=== PATIENT | female | born 1990 | race Caucasian/White ===

== ENCOUNTER 2019-10-02 16:05 | Inpatient (IN) | payer MEDICAID, OTHER ==
[~2019-10-02] VITALS: Ht 157.5 cm; Wt 72.6 kg
[~2019-10-02 16:05] MED LIST: PREN-65 PO
[2019-10-02 17:19] VITALS: BP 103/58
[2019-10-02] MEDS ORDERED: PREN-217 PO (17:19)
[2019-10-02] MEDS ORDERED: FERR-89 PO (17:19)
[2019-10-02] MEDS ORDERED: RINGERS SOLUTION,LACTATED 1,000 ML IV ONE (18:01)
[2019-10-02 20:29] LABS: BASOPHILS % (AUTO) 0.4 % (0.0-2.0); EOSINOPHILS % (AUTO) 2.1 % (1.0-6.0); HEMATOCRIT 35.6 % (36-46); HEMOGLOBIN 12.1 g/dL (12.0-16.0); LYMPHOCYTES # (AUTO) 1.4 K/uL (1.0-4.8); LYMPHOCYTES % (AUTO) 13.8 % (22.0-44.0); MEAN CORPUSCULAR HEMOGLOBIN 29.4 pg (26.0-34.0); MEAN CORPUSCULAR HGB CONC 34.1 G/dL (31.0-37.0); MEAN CORPUSCULAR VOLUME 86 fL (80-100); MONOCYTES # (AUTO) 0.7 K/uL (0.1-1.0); MONOCYTES % (AUTO) 6.6 % (2.0-9.0); NEUTROPHILS # (AUTO) 7.9 K/uL (1.8-7.7); NEUTROPHILS % (AUTO) 77.1 % (40.0-70.0); PLATELET COUNT (AUTO)-OB 184 K/uL (150-450); RED BLOOD CELL COUNT(AUTO) 4.13 MIL/uL (4.00-5.20); RED CELL DISTRIBUTION WIDTH 16.8 % (11.5-14.5)
[2019-10-02] MEDS ORDERED: CALCIUM GLUCONATE 100 MG/ML 10 ML IVP PRN (22:45)
[2019-10-02] MEDS: BETAMETHASONE SOLUSPAN 6 MG/ML 5 ML VIAL IM SCH (22:58)
[2019-10-02] MEDS ORDERED: INFLUENZA VIRUS VACCINE QVS 2019-20 (3YR+)/PF 60 MCG/0.5 ML SYRINGE IM ONE (23:00)
[2019-10-02] MEDS: MAGNESIUM SULFATE 500 ML IV SCH (23:20)
[2019-10-03] MEDS: RINGERS SOLUTION,LACTATED 1,000 ML IV SCH ×2 (01:45→16:13)
[2019-10-03] MEDS: MAGNESIUM SULFATE 500 ML IV SCH ×2 (06:55→17:09)
[2019-10-03] MEDS: BETAMETHASONE SOLUSPAN 6 MG/ML 5 ML VIAL IM SCH (23:17)
[2019-10-04] MEDS ORDERED: MAGNESIUM HYDROXIDE SUSPENSION 30 ML UDCUP PO ONE (06:00)
[2019-10-04] MEDS ORDERED: SENNA/DOCUSATE SODIUM 8.6-50 MG TABLET PO ONE (06:00)
[2019-10-04] MEDS: RINGERS SOLUTION,LACTATED 1,000 ML IV SCH (07:34)
[2019-10-04] MEDS ORDERED: NIFE10 PO (11:09)
== END 2019-10-04 11:55 | disposition home or self-care (01) | DRG 566 ==
LOC: 4S 16:05 → OBSVTOIN 16:05
PROVIDERS: ADMIT Obstetrics & Gynecology Obstetrics; ATTEND Obstetrics & Gynecology Obstetrics
PROC: 4A1HXCZ Monitoring of Products of Conception, Cardiac Rate, External Approach (ICD-10-PCS; principal; 2019-10-04)
DX: O36.8130 Decreased fetal movements, third trimester, not applicable or unspecified (principal); O60.03 Preterm labor without delivery, third trimester; Z3A.33 33 weeks gestation of pregnancy
CPT/HCPCS: 76811; 83735; 87081; 87086; 87635; 90686; J0610; J0702; J3475; J7120

== ENCOUNTER 2019-11-14 17:39 | Observation (INO) | payer MEDICAID ==
[~2019-11-14 17:39] MED LIST changes: +FERR-89 PO; +NIFE10 PO; +PREN-217 PO; -PREN-65 PO
== END 2019-11-14 18:00 | disposition home or self-care (01) ==
LOC: 4S 17:39
PROVIDERS: ADMIT Obstetrics & Gynecology; ATTEND Obstetrics & Gynecology
DX: Z03.818 Encounter for observation for suspected exposure to other biological agents ruled out (principal); O26.893 Other specified pregnancy related conditions, third trimester; Z3A.39 39 weeks gestation of pregnancy
CPT/HCPCS: 87635; G0378

== ENCOUNTER 2019-11-15 19:01 | Inpatient (IN) | payer MEDICAID ==
[~2019-11-15] VITALS: Ht 152.4 cm; Wt 77.1 kg
[2019-11-15] MEDS ORDERED: RINGERS SOLUTION,LACTATED 1,000 ML IV ONE (21:11)
[2019-11-15] MEDS ORDERED: OXYTOCIN 30 UNITS/LACT RINGERS 500 ML IV ONE (21:11)
[2019-11-15] MEDS ORDERED: METOCLOPRAMIDE HCL 5 MG/ML 2 ML VIAL IVP PRN (21:15)
[2019-11-15] MEDS ORDERED: LIDOCAINE/PF 1% 30 ML VIAL INJ PRN (21:15)
[2019-11-15] MEDS ORDERED: CITRIC ACID/SODIUM CITRATE 30 ML SOLUTION UDCUP PO PRN (21:15)
[2019-11-15 21:25] VITALS: BP 117/78
[2019-11-15] MEDS: RINGERS SOLUTION,LACTATED 1,000 ML IV SCH (21:38)
[2019-11-15 21:45] LABS: BASOPHILS % (AUTO) 0.4 % (0.0-2.0); EOSINOPHILS % (AUTO) 1.5 % (1.0-6.0); HEMATOCRIT 36.6 % (36-46); HEMOGLOBIN 12.6 g/dL (12.0-16.0); LYMPHOCYTES # (AUTO) 1.7 K/uL (1.0-4.8); LYMPHOCYTES % (AUTO) 18.5 % (22.0-44.0); MEAN CORPUSCULAR HEMOGLOBIN 28.8 pg (26.0-34.0); MEAN CORPUSCULAR HGB CONC 34.5 G/dL (31.0-37.0); MEAN CORPUSCULAR VOLUME 84 fL (80-100); MONOCYTES # (AUTO) 0.7 K/uL (0.1-1.0); MONOCYTES % (AUTO) 7.4 % (2.0-9.0); NEUTROPHILS # (AUTO) 6.7 K/uL (1.8-7.7); NEUTROPHILS % (AUTO) 72.2 % (40.0-70.0); PLATELET COUNT (AUTO)-OB 172 K/uL (150-450); RED BLOOD CELL COUNT(AUTO) 4.37 MIL/uL (4.00-5.20); RED CELL DISTRIBUTION WIDTH 15.9 % (11.5-14.5)
[2019-11-15] MEDS: MISOPROSTOL 25 MCG TABLET VG SCH (22:14)
[2019-11-16] MEDS ORDERED: MISOPROSTOL 25 MCG TABLET VG SCH
[2019-11-16] MEDS: MISOPROSTOL 25 MCG TABLET VG SCH (02:09)
[2019-11-16] MEDS: FentaNYL CITRATE-PF 100 MCG/2 ML VIAL IVP PRN ×3 (02:11→18:27)
[2019-11-16] MEDS ORDERED: AMPICILLIN SODIUM 2 GM/NS 100 ML IV ONE (02:45)
[2019-11-16] MEDS: RINGERS SOLUTION,LACTATED 1,000 ML IV SCH ×4 (03:55→23:02)
[2019-11-16] MEDS ORDERED: ROPIVACAINE HCL/PF 0.2% 100 ML ED ONE (04:15)
[2019-11-16] MEDS ORDERED: ROPIVACAINE HCL/PF 0.2% 100 ML ED PRN (04:45)
[2019-11-16] MEDS ORDERED: OXYTOCIN 30 UNITS/LACT RINGERS 500 ML IV PRN (06:33)
[2019-11-16] MEDS: AMPICILLIN SODIUM 1 GM/NS 50 ML IV SCH ×2 (10:13→14:23)
[2019-11-16] MEDS ORDERED: MORPHINE SULFATE/PF 0.5 MG/ML 10 ML AMP IVP ONE (12:00)
[2019-11-16] MEDS ORDERED: SUCCINYLCHOLINE CHLORIDE 20 MG/ML 10 ML VIAL IVP ONE (12:00)
[2019-11-16] MEDS ORDERED: ONDANSETRON HCL 4 MG/2 ML VIAL IVP ONE (12:00)
[2019-11-16] MEDS ORDERED: 0.9% SODIUM CHLORIDE 10 ML VIAL IVP ONE (12:00)
[2019-11-16] MEDS ORDERED: FentaNYL CITRATE-PF 100 MCG/2 ML VIAL IVP ONE (12:00)
[2019-11-16] MEDS ORDERED: KETOROLAC TROMETHAMINE 60 MG/2 ML VIAL IM ONE (12:00)
[2019-11-16] MEDS ORDERED: LIDOCAINE/PF 2% 5 ML VIAL INJ ONE (12:00)
[2019-11-16] MEDS ORDERED: EPHEDrine SULFATE 50 MG/ML VIAL IM ONE (12:00)
[2019-11-16] MEDS ORDERED: PROPOFOL 1% 20 ML VIAL IVP ONE (12:00)
[2019-11-16] MEDS ORDERED: RINGERS SOLUTION,LACTATED 1,000 ML IV ONE (15:07)
[2019-11-16] MEDS ORDERED: SODIUM CHLORIDE 0.9% 1,000 ML ONE (15:07)
[2019-11-16] MEDS ORDERED: LIDOCAINE/PF 2% 5 ML VIAL ONE (16:18)
[2019-11-16] MEDS ORDERED: METHYLERGONOVINE MALEATE 0.2 MG/ML VIAL ONE (17:06)
[2019-11-16] MEDS ORDERED: GUM MASTIC/STORAX/MSAL/ALCOHOL LIQUID 0.67 ML VIAL TP ONE (17:27)
[2019-11-16] MEDS ORDERED: HYDROmorphone 2 MG/ML SYRINGE IVP PRN (17:30)
[2019-11-16] MEDS ORDERED: MEPERIDINE-PF 25 MG/ML VIAL IVP PRN (17:30)
[2019-11-16] MEDS ORDERED: FentaNYL CITRATE-PF 100 MCG/2 ML VIAL IVP PRN ×2 (17:30→19:45)
[2019-11-16] MEDS ORDERED: FentaNYL CITRATE-PF 100 MCG/2 ML VIAL ONE (18:14)
[2019-11-16] MEDS ORDERED: LANOLIN 7 GM OINTMENT TP PRN (19:30)
[2019-11-16] MEDS ORDERED: NALOXONE HCL 0.4 MG/ML VIAL IVP PRN (19:45)
[2019-11-16] MEDS ORDERED: NALBUPHINE HCL 10 MG/ML VIAL IVP PRN ×2 (19:45)
[2019-11-16] MEDS ORDERED: MORPHINE SULFATE 10 MG/ML SYRINGE IVP PRN (19:45)
[2019-11-16] MEDS ORDERED: DiphenhydrAMINE HCL 50 MG/ML VIAL IVP PRN (19:45)
[2019-11-16] MEDS ORDERED: ONDANSETRON HCL 4 MG/2 ML VIAL IVP PRN (19:45)
[2019-11-16] MEDS ORDERED: OXYTOCIN 20 UNITS/LACT RINGERS 1,000 ML IV ONE (20:00)
[2019-11-16] MEDS ORDERED: OXYGEN THERAPY IH SCH ×3 (20:00)
[2019-11-16] MEDS: ACETAMINOPHEN 1000 MG/ISO-OSM 100 ML IV SCH (20:47)
[2019-11-16] MEDS: KETOROLAC TROMETHAMINE 30 MG/ML VIAL IVP SCH (23:05)
[2019-11-17] MEDS: ACETAMINOPHEN 1000 MG/ISO-OSM 100 ML IV SCH (04:46)
[2019-11-17] MEDS: RINGERS SOLUTION,LACTATED 1,000 ML IV SCH (04:46)
[2019-11-17] MEDS: KETOROLAC TROMETHAMINE 30 MG/ML VIAL IVP SCH (04:46)
[2019-11-17 07:09] LABS: BASOPHILS % (AUTO) 0.3 % (0.0-2.0); EOSINOPHILS % (AUTO) 0.5 % (1.0-6.0); HEMATOCRIT 25.5 % (36-46); MEAN CORPUSCULAR HEMOGLOBIN 29.4 pg (26.0-34.0); MEAN CORPUSCULAR HGB CONC 35.2 G/dL (31.0-37.0); MEAN CORPUSCULAR VOLUME 84 fL (80-100); MONOCYTES # (AUTO) 0.8 K/uL (0.1-1.0); MONOCYTES % (AUTO) 7.3 % (2.0-9.0); NEUTROPHILS # (AUTO) 8.4 K/uL (1.8-7.7); NEUTROPHILS % (AUTO) 81.9 % (40.0-70.0); PLATELET COUNT (AUTO)-OB 131 K/uL (150-450); RED BLOOD CELL COUNT(AUTO) 3.05 MIL/uL (4.00-5.20); RED CELL DISTRIBUTION WIDTH 15.7 % (11.5-14.5)
[2019-11-17] MEDS: MAGNESIUM HYDROXIDE SUSPENSION 30 ML UDCUP PO PRN ×2 (09:41→21:34)
[2019-11-17] MEDS: IBUPROFEN 800 MG TABLET PO PRN (17:45)
[2019-11-17] MEDS ORDERED: ACETAMINOPHEN/CODEINE 300-30 MG TABLET PO PRN ×2 (19:30)
[2019-11-18] MEDS: IBUPROFEN 800 MG TABLET PO PRN ×2 (04:58→11:12)
[2019-11-18] MEDS: MAGNESIUM HYDROXIDE SUSPENSION 30 ML UDCUP PO PRN (08:46)
[2019-11-18] MEDS ORDERED: MEASLES/MUMPS/RUBELLA VACCINE, LIVE 0.5 ML/VIAL SQ ONE (14:00)
[2019-11-18] MEDS ORDERED: IBUP-2070 PO (15:28)
== END 2019-11-18 16:20 | disposition home or self-care (01) | DRG 540 ==
LOC: OBSVTOIN 20:00 → 4S 20:00
PROVIDERS: ADMIT Obstetrics & Gynecology; ATTEND Obstetrics & Gynecology
PROC: 10D00Z1 Extraction of Products of Conception, Low, Open Approach (ICD-10-PCS; principal; 2019-11-16)
PROC: 3E0234Z Introduction of Serum, Toxoid and Vaccine into Muscle, Percutaneous Approach (ICD-10-PCS; 2019-11-18)
DX: O61.9 Failed induction of labor, unspecified (principal); O33.9 Maternal care for disproportion, unspecified; Z3A.39 39 weeks gestation of pregnancy; Z37.0 Single live birth; Z23 Encounter for immunization; O99.824 Streptococcus B carrier state complicating childbirth
CPT/HCPCS: 76811; 86850; 86900; 86901; 87081; 90707; J0131; J0290; J0330; J0690; J1885; J2210; J2274; J2405; J2590; J2704; J2765; J2795; J3010; J3490; J7030; J7120